=== PATIENT | male | born 1970 | race American Indian/Alaskan Native ===

== ENCOUNTER 2017-06-23 16:20 | Emergency (ER) | payer SELFPAY ==
[2017-06-23 17:03] VITALS: O2SAT 99
--- NOTE | 2017-06-23 17:55 | C.PDOC ---
History Of Present Illness 46 year old male presents to the ED c/o paresthesia, "numbness" among the palmar aspect and ulnar surface of the hand, forearm and arm. Patient states sensation on the dorsal aspect of the hand and radial aspect of the arm is intact. Patient denies weakness, neck pain, decreased motor or sensation. Time Seen by Provider: 06/23/17 17:28 Chief Complaint (Nursing): Finger,Hand,&Wrist History Per: Patient History/Exam Limitations: no limitations Onset/Duration Of Symptoms: Days Current Symptoms Are (Timing): Still Present Exacerbating Factor(s): Worse At Night Recent travel outside of the [place]: No Additional History Per: Patient Past Medical History Reviewed: Historical Data, Nursing Documentation, Vital Signs Vital Signs: Last Vital Signs Temp 97.6 F 06/23/17 16:59 Pulse 64 06/23/17 16:59 Resp 20 06/23/17 16:59 BP 123/71 06/23/17 16:59 Pulse Ox 99 06/23/17 17:56 - Medical History PMH: Back Problems Surgical History: No Surg Hx Family History: States: Unknown Family Hx - Social History Hx Tobacco Use: Yes Hx Alcohol Use: No (DENIED) Hx Substance Use: No (DENIED) - Immunization History Hx Tetanus Toxoid Vaccination: No Hx Influenza Vaccination: No Hx Pneumococcal Vaccination: No Review Of Systems Constitutional: Negative for: Fever, Chills Cardiovascular: Negative for: Chest Pain Respiratory: Negative for: Cough, Shortness of Breath Gastrointestinal: Negative for: Nausea, Vomiting, Abdominal Pain Skin: Negative for: Rash Neurological: Positive for: Numbness. Negative for: Headache, Dizziness Physical Exam - Physical Exam Appears: Non-toxic, No Acute Distress Skin: Normal Color, Warm, Dry Head: Atraumatic, Normacephalic Eye(s): bilateral: Normal Inspection Nose: No Discharge, No Deformity Oral Mucosa: Moist Neck: Normal ROM, Supple Extremity: Normal ROM, Capillary Refill (< 2 seconds), No Deformity, No Swelling , Other (paresthesia C8/C7 dermatome distribution) Pulses: Left Dorsalis Pedis: Normal, Right Dorsalis Pedis: Normal Neurological/Psych: Oriented x3, Normal Speech, Normal Cognition, Normal Motor ( 5/5 strength), Normal Sensation Gait: Steady ED Course And Treatment O2 Sat by Pulse Oximetry: 99 (On RA) Pulse Ox Interpretation: Normal Medical Decision Making Medical Decision Making: Impression : paresthesia palmar and ulnar aspect of hand, arms, forearm Patient was instructed to take neurontin for 2-4 weeks, possibility of medication regimen may not be effective was explained and patient understands. Management plans and information were given for a neurologist and a MRI that are pending on the patient's insurance eligibility. Disposition Counseled Patient/Family Regarding: Diagnosis, Need For Followup, Rx Given, Smoking Cessation - Disposition Referrals: John Cano MD [Staff Provider] - [facility] [place] [Outside] [facility] [Outside] Disposition: HOME/ ROUTINE Disposition Time: 17:52 Condition: GOOD Prescriptions: Dexamethasone 12 mg PO ONCE #2 tab Gabapentin [Neurontin] 300 mg PO TID #30 cap Instructions: How to Stop Smoking (ED), Paresthesia (ED), Cervical Radiculopathy (ED) Forms: [facility] (Green[place]ic) - Clinical Impression Clinical Impression: Paresthesia of arm - Scribe Statement The provider has reviewed the documentation as recorded by the Scribe Karson Kerans All medical record entries made by the Scribe were at my direction and personally dictated by me. I have reviewed the chart and agree that the record accurately reflects my personal performance of the history, physical exam, medical decision making, and the department course for this patient. I have also personally directed, reviewed, and agree with the discharge instructions and disposition.
[2017-06-23 18:41] VITALS: BP 152/78; PULSE 57; RESP 16; TEMP 97.9
== END 2017-06-23 18:05 | disposition home or self-care (01) ==
LOC: C.ER 16:20
DX: R20.2 Paresthesia of skin (principal)